=== PATIENT | female | born 1945 | race Caucasian/White ===

== ENCOUNTER → 2016-07-10 | Outpatient (CLI) | payer OTHER ==
[~2016-07-10] VITALS: Ht 162.6 cm; Wt 58.5 kg
[~2016-07-10] MED LIST: CIPRO500 MG PO; FLAGYL500 MG PO; PERCOCET 5/31 TABLET PO; ZOFRAN ODT4 MG PO
== END | disposition home or self-care (01) ==
LOC: AMB 08:37
DX: K25.9 Gastric ulcer, unspecified as acute or chronic, without hemorrhage or perforation (principal); R11.0 Nausea; R10.30 Lower abdominal pain, unspecified; K86.89 Other specified diseases of pancreas; Z98.890 Other specified postprocedural states
CPT/HCPCS: 88305; 88342 TC; 93005; C1726; J0330; J2250; J2405; J3010

== ENCOUNTER 2016-11-27 13:00 | Day surgery (SDC) | payer OTHER ==
[~2016-11-27] VITALS: Ht 160 cm; Wt 59.9 kg
[~2016-11-27 13:00] MED LIST changes: +PROTONIX40 MG PO
[2016-11-27 13:42] VITALS: BP 134/65
[2016-11-27] MEDS ORDERED: NORCO 5/3251 TABLET PO (18:51)
[2016-11-27 19:56] VITALS: BP 149/68
[2016-11-27 21:25] VITALS: BP 122/60
== END 2016-11-27 21:30 | disposition home or self-care (01) ==
LOC: SDC 13:00
DX: K80.10 Calculus of gallbladder with chronic cholecystitis without obstruction (principal); D13.5 Benign neoplasm of extrahepatic bile ducts; K66.0 Peritoneal adhesions (postprocedural) (postinfection); K21.0 Gastro-esophageal reflux disease with esophagitis; Z87.891 Personal history of nicotine dependence; R94.31 Abnormal electrocardiogram [ECG] [EKG]
CPT/HCPCS: 74300; 88304; J0131; J1885; J2405; J2765; J3010; S0020

== ENCOUNTER → 2017-02-19 | Outpatient (CLI) | payer OTHER ==
[~2017-02-19] VITALS: Ht 160 cm; Wt 59.0 kg
[~2017-02-19] MED LIST changes: +NORCO 5/3251 TABLET PO; +PEG 3350 ELEC4000 ML PO
== END | disposition home or self-care (01) ==
LOC: AMB 09:26
DX: Z12.11 Encounter for screening for malignant neoplasm of colon (principal); K63.3 Ulcer of intestine; K64.4 Residual hemorrhoidal skin tags; K64.8 Other hemorrhoids; K92.1 Melena; K44.9 Diaphragmatic hernia without obstruction or gangrene; Z87.11 Personal history of peptic ulcer disease; Z87.891 Personal history of nicotine dependence
CPT/HCPCS: 85027; 88305; 88342 TC; J2250

== ENCOUNTER 2017-04-21 10:52 | Day surgery (SDC) | payer OTHER ==
[~2017-04-21] VITALS: Ht 160 cm; Wt 59.5 kg
[2017-04-21 11:50] VITALS: BP 130/80
[2017-04-21 19:00] VITALS: BP 142/63
[2017-04-21 20:15] VITALS: BP 135/62
== END 2017-04-21 20:55 | disposition home or self-care (01) ==
LOC: SDC 10:52
DX: M20.12 Hallux valgus (acquired), left foot (principal); M24.575 Contracture, left foot; M21.6X2 Other acquired deformities of left foot; M77.42 Metatarsalgia, left foot; S93.145A Subluxation of metatarsophalangeal joint of left lesser toe(s), initial encounter; M20.42 Other hammer toe(s) (acquired), left foot; Z87.891 Personal history of nicotine dependence; K21.9 Gastro-esophageal reflux disease without esophagitis
CPT/HCPCS: 73630; 76000; C1713; J0690; J1100; J1885; J2250; J2405; J3010; S0020